=== PATIENT | male | born 1990 | race Caucasian/White ===

== ENCOUNTER 2016-07-04 19:39 | Emergency (ER) | payer OTHER ==
[2016-07-04 19:55] VITALS: TEMP 98.2
--- NOTE | 2016-07-04 20:49 | ED ---
General Adult HPI - General Chief complaint: Dizziness Stated complaint: blacked out Time Seen by Provider: 07/04/16 20:00 Source: patient, RN notes reviewed Mode of arrival: ambulatory Limitations: no limitations - History of Present Illness Initial comments: This is a 25-year-old male presents emergency Department complaining of having a tunnel vision episode that lasted one to 2 seconds while in a movie theater. Patient states he sat back in the comfortable lounging seats and he felt as though the vision narrow down into a tunnel it only lasted a second or 2 and then it went away and then he thought he was having some difficulty getting his breath when he was lying back into the chair but when he sat up straight he was having no difficulty whatsoever. Patient currently is asymptomatic. Patient states he has no history of any anxiety. Patient states he has been to the emergency department a few times for sharp chest pains in the past the last 1-2 seconds. Patient denies any recent fever chills or cough. Patient denies taking any drugs or alcohol. Patient denies any large caffeine intake. Patient denies any nausea vomiting or diarrhea. Patient denies any abdominal pain. Patient states he has been eating and drinking normally. He did not do anything different at work today. Patient denies any headache patient denies numbness weakness. Patient denies any recent injury or trauma. Patient denied any palpitations. Patient denies chest pain. - Related Data Home Medications Medication Instructions Recorded Confirmed Ketoconazole 2% Shampoo [Nizoral] 1 applic TOPICAL Q3D PRN 07/04/16 07/04/16 Allergies Allergy/AdvReac Type Severity Reaction Status Date / Time No Known Allergies Allergy Verified 07/04/16 20:15 Review of Systems ROS Statement: Those systems with pertinent positive or pertinent negative responses have been documented in the HPI. ROS Other: All systems not noted in ROS Statement are negative. Past Medical History Past Medical History: No Reported History History of Any Multi-Drug Resistant Organisms: None Reported Past Surgical History: No Surgical Hx Reported Past Psychological History: No Psychological Hx Reported Smoking Status: Current every day smoker Past Alcohol Use History: Occasional Past Drug Use History: None Reported General Exam - General Exam Comments Initial Comments: GENERAL: Patient is well-developed and well-nourished. Patient is nontoxic and well- hydrated and is in no acute distress. ENT: Neck is soft and supple. No significant lymphadenopathy is noted. Oropharynx is clear. Moist mucous membranes. Neck has full range of motion without eliciting any pain. EYES: The sclera were anicteric and conjunctiva were pink and moist. Extraocular movements were intact and pupils were equal round and reactive to light. Eyelids were unremarkable. PULMONARY: Unlabored respirations. Good breath sounds bilaterally. No audible rales rhonchi or wheezing was noted. CARDIOVASCULAR: There is a regular rate and rhythm without any murmurs gallops or rubs. ABDOMEN: Soft and nontender with normal bowel sounds. No palpable organomegaly was noted. There is no palpable pulsatile mass. SKIN: Skin is clear with no lesions or rashes and otherwise unremarkable. NEUROLOGIC: Patient is alert and oriented x3. Cranial nerves II through XII are grossly intact. Motor and sensory are also intact. Normal speech, volume and content. Symmetrical smile. MUSCULOSKELETAL: Normal extremities with adequate strength and full range of motion. LYMPHATICS: No significant lymphadenopathy is noted PSYCHIATRIC: Normal psychiatric evaluation. Limitations: no limitations Course Vital Signs 07/04/16 07/04/16 19:53 21:10 Temperature 98.2 F Pulse Rate 88 Pulse Rate [ 73 Right Sitting Pulse Oximetery ] Pulse Rate [ 79 Right Standing Pulse Oximetery ] Pulse Rate [ 73 Right Supine Pulse Oximetery ] Respiratory 18 16 Rate Blood Pressure 139/91 Blood Pressure 147/88 [Right Arm Sitting] Blood Pressure 139/85 [Right Arm Standing] Blood Pressure 139/82 [Right Arm Supine] O2 Sat by Pulse 98 Oximetry Medical Decision Making - Medical Decision Making EKG shows normal sinus rhythm at 75 bpm OR interval 148 QRSs 106 QT interval 350 QTC is 390 per patient's EKG shows no ST segment elevation or depression or T-wave abdomen is noted. Disposition Clinical Impression: Near syncope Disposition: HOME SELF-CARE Instructions: Near Syncope (ED) Referrals: Eric Tolentino MD [Primary Care Provider] - 1-2 days Time of Disposition: 21:29
--- NOTE | 2016-07-04 21:06 | XR ---
EXAMINATION TYPE: XR chest 2V DATE OF EXAM: 07/04/2016 8:55 PM COMPARISON: NONE HISTORY: Syncope TECHNIQUE: Frontal and lateral views of the chest are obtained. FINDINGS: Heart and mediastinum are normal. Lungs are clear. Diaphragm is normal. Bony thorax appear s normal. IMPRESSION: Normal chest. No change.
[2016-07-04 21:15] VITALS: BP 139/82; PULSE 73; RESP 16
[2016-07-05 09:57] LABS: Glucose,Whole Blood 101 mg/dL (75-99)
== END 2016-07-04 21:37 | disposition home or self-care (01) ==
LOC: EC 19:39
DX: R55 Syncope and collapse (principal); F17.200 Nicotine dependence, unspecified, uncomplicated
CPT/HCPCS: 36415; 71020; 93005; 99284

== ENCOUNTER → 2020-09-20 | Outpatient (CLI) | payer BC ==
--- NOTE | 2020-09-20 10:03 | XR ---
EXAMINATION TYPE: XR shoulder complete LT DATE OF EXAM: 09/20/2020 COMPARISON: NONE HISTORY: Pain TECHNIQUE: Three views are submitted. FINDINGS: The osseous structures are intact. There is no acute fracture or dislocation. The AC joint is maint ained. IMPRESSION: 1. No acute process. If symptoms persist consider MRI.
== END | disposition home or self-care (01) ==
LOC: RADXRYALE 09:40
PROVIDERS: ATTEND Physician Assistant
DX: M25.512 Pain in left shoulder (principal)